=== PATIENT | female | born 1975 | race Caucasian/White ===

== ENCOUNTER 2016-11-29 10:46 | Emergency (ER) | payer OTHER ==
[~2016-11-29 10:46] MED LIST: ALAVERT10 MG PO; ALBUTEROL17 GM INH; ALPRAZOLAM PO; AMOXICILLIN875 MG PO; AMOXIL500 M1; AUGMENTIN PO; BENTYL20 MG PO; BUSPAR; BUSPAR15 M1 PO; BUSPAR15 M2 PO; BUSPAR5 M1; CETIRIZINE HCL10 MG PO; CHANTIX1 MG BU; CIPRO PO; CORTISPORI10 ML OTIC AD; CYMBALTA PO; DEPAKOTE ER PO; DICYCLOMINE HCL20 MG PO; FLEXERIL10 MG PO; FLONASE 0.05% N16 G1; IBUPROFEN PO; IBUPROFEN800 MG PO; LISINOPRIL20 MG PO; LORATADINE PO; LORTAB 5/500 TA1 TA1 PO; MEDROL4 MG/DOSE- PO; MOTRIN600 MG PO; NAPROXEN PO; NASONEX17 GM; NO MEDICATIONS; PHENERGAN PO; PHENERGAN PR; PHENERGAN12.5 MG PO; PHENERGAN25 MG PO; POLYETHYLENE G527 GM PO; RANITIDINE HCL150 M1 PO; SINGULAIR PO; TYLENOL #3 PO; ULTRAM PO; ZANTAC150 M1 PO; ZITHROMAX PO; ZOFRAN ODT4 MG/UDTAB PO
[2016-11-29 11:23] LABS: BASOPHIL# 0.1 X10e3 (0-0.3); BASOPHIL% 0.5 % (0-2.5); EOSINOPHIL# 0.1 X10e3 (0-0.7); EOSINOPHIL% 0.8 % (0.0-7.0); HEMATOCRIT 44.4 % (35.0-45.0); LYMPHOCYTE# 2.1 X10e3 (1.0-3.5); LYMPHOCYTE% 18.7 % (17.0-45.0); MEAN CELL VOLUME 93.3 FL (83-96); MEAN CORPUSCULAR HEMOGLOBIN 31.5 PG (28-34); MEAN CORPUSCULAR HGB CONC 33.8 g/dL (30-36); MEAN PLATELET VOLUME 9.6 FL (6.5-11.5); MONOCYTE# 0.6 X10e3 (0-1.0); MONOCYTE% 5.2 % (3.0-12.0); NEUTROPHIL# 8.2 X10e3 (1.5-7.1); NEUTROPHIL% 74.8 % (40-75); PLATELET COUNT 162 X10e3 (140-420); RED BLOOD COUNT 4.75 X10e (3.90-5.30); RED CELL DISTRIBUTION WIDTH 13.7 % (11.0-15.5)
[2016-11-29 11:31] LABS: DIFF IND NO
[2016-11-29 11:40] LABS: ALBUMIN SERUM 4.4 g/dL (3.5-5.0); ALKALINE PHOSPHATASE 41 U/L (32-92); ALT (SGPT) 17 U/L (10-40); AST (SGOT) 20 U/L (10-42); BILIRUBIN, DIRECT 0.1 mg/dL (0.0-0.2); BILIRUBIN,INDIRECT 0.7 mg/dL (0.0-0.9); BILIRUBIN,TOTAL 0.8 mg/dL (0.2-2.0); BLOOD UREA NITROGEN 8 mg/dL (9-23); BUN/CREATININE RATIO 11.42; CALCIUM SERUM 9.1 mg/dL (8.4-10.2); CARBON DIOXIDE 28 mmol/L (22-31); CHLORIDE 106 mmol/L (100-111); CREATININE SERUM 0.7 mg/dL (0.6-1.4); GLOM FILT RATE Estimated ABOVE60 mL/min (>60); GLUCOSE FASTING 113 mg/dL (70-110); LIPASE 29 U/L (22-51); PROTEIN TOTAL SERUM 7.6 g/dL (6.0-8.3); SODIUM 141 mmol/L (135-145); URINE SOURCE CLEAN CATCH
[2016-11-29 11:42] LABS: URINE APPEARANCE CLEAR; URINE BILIRUBIN NEG (NEG); URINE BLOOD 1+ (NEG); URINE COLOR YELLOW; URINE GLUCOSE NEG (NORM); URINE KETONE NEG (NEG); URINE LEUKOCYTE ESTERASE NEG (NEG); URINE NITRATE NEG (NEG); URINE PROTEIN NEG (NEG); URINE SPECIFIC GRAVITY >=1.030 (1.003-1.035); URINE UROBILINOGEN 0.2 MG/DL (NORM)
[2016-11-29 11:53] LABS: MICRO INDICATED? YES
[2016-11-29 11:54] LABS: CULTURE INDICATED? NO; URINE BACTERIA NEG (NEG); URINE RBC 0-2 /[HPF] (0-2); URINE WBC 0-2 /[HPF] (0-5)
== END 2016-11-29 13:14 | disposition home or self-care (01) ==
LOC: SED 10:46
PROVIDERS: Nurse Practitioner
DX: R11.2 Nausea with vomiting, unspecified (principal); R19.7 Diarrhea, unspecified; F41.9 Anxiety disorder, unspecified; Z90.49 Acquired absence of other specified parts of digestive tract; Z88.5 Allergy status to narcotic agent
CPT/HCPCS: 36415; 80048; 80076; 81003; 83690; 84703; 85025; 96361; 96372; 96374; 96375; 99284; C9113; J0500; J1885; J2405; J2550

== ENCOUNTER 2016-12-23 16:40 | Emergency (ER) | payer OTHER ==
--- NOTE | ~2016-12-23 | CT52 ---
[facility] A Service of [facility] RADIOLOGY TEXT RESULTS PATIENT: GABRIELE MCDONALD LOCATION: SED : 71 UNIT #: [id number] AGE: [address]: Lambert High MD SEX: F ORDER DR: [id number] [address] [address] [id number] E MR#: [id number] Acc #: [id number] NAME: GABRIELE MCDONALD : 1975 SEX: F STUDY DATE/TIME: 12/23/2016 16:53 UNIT: SED ROOM: STUDY DESCRIPTION: CT Cervical Spine Wo Cont Attending Physician: Lambert High M.D. Ordering Physician: Lambert High M.D. Primary Care Physician: Umesh Merlos M.D. MEDICAL IMAGING REPORT This report is preliminary unless electronic signature is present. EXAM CT cervical spine without contrast HISTORY Neck pain after fall 2 days ago. FINDINGS This CT exam was performed with one or more of the following radiation dose reduction techniques: Automatic exposure control, adjustment of mA and/or kV according to patient size, and iterative reconstruction. CT cervical spine without contrast demonstrates moderate degenerative disc space narrowing at C5-6 with moderate sized broad-based marginal osteophyte and associated facet hypertrophy causing moderate bilateral bony outlet foraminal narrowing, right greater than left. There is also moderate left bony outlet foraminal narrowing at C7-T1 and mild right bony outlet foraminal narrowing at C7-T1 secondary to marginal osteophyte and facet hypertrophy, left greater than right. No fracture. No cervical subluxation. No precervical soft tissue swelling. IMPRESSION 1. No acute findings. 2. No fracture. 3. Moderate disc space narrowing at C5-6. 4. Moderate bony outlet foraminal narrowing at C5-6 bilaterally and at C7-T1 on the left. Dictated by... Larry Amin M.D. [facility] A Service [facility] RADIOLOGY TEXT RESULTS PATIENT: GABRIELE MCDONALD [facility] [id number] : [birth year] UNIT #: [id number] AGE: [address]: Lambert High MD SEX: F ORDER DR: THIS IS AN ELECTRONICALLY VERIFIED REPORT Larry Amin M.D. at 12/23/2016 10:55 PM DFL/christian TD: 12/23/2016 22:05 JOB #: [id number] MEDICAL IMAGING REPORT Page 1 of 1
--- NOTE | ~2016-12-23 | CT71 ---
[facility] A Service of [facility] RADIOLOGY TEXT RESULTS PATIENT: GABRIELE MCDONALD LOCATION: SED : [birth year] UNIT #: [id number] AGE: [address]: Lambert High MD SEX: F ORDER DR: [id number] [address] [address] [id number] E MR#: [id number] Acc #: [id number] NAME: GABRIELE MCDONALD : 1975 SEX: F STUDY DATE/TIME: 12/23/2016 16:47 UNIT: SED ROOM: STUDY DESCRIPTION: CT Head Wo Contrast Attending Physician: Lambert High M.D. Ordering Physician: Lambert High M.D. Primary Care Physician: Umesh Merlos M.D. MEDICAL IMAGING REPORT This report is preliminary unless electronic signature is present. EXAM CT brain without contrast HISTORY Fell and hit head. Headache. Confusion today. FINDINGS This CT exam was performed with one or more of the following radiation dose reduction techniques: Automatic exposure control, adjustment of mA and/or kV according to patient size, and iterative reconstruction. CT brain without contrast demonstrates no intracranial hemorrhage, mass or edema. No midline shift or ventricular dilatation or extraaxial fluid collection. Developmental asymmetry of the left anterior frontal skull previously noted on 03/13/2016. No focal atrophy or midline shift or extraaxial fluid collection. Small amount of fluid and mucosal thickening in the maxillary sinuses and ethmoid air cells bilaterally. IMPRESSION 1. No acute intracranial findings. 2. Mild bilateral paranasal sinusitis. Dictated by... Larry Amin M.D. THIS IS AN ELECTRONICALLY VERIFIED REPORT Larry Amin M.D. at 12/23/2016 10:55 PM DFL/psc TD: 12/23/2016 21:50 JOB #: [id number] [facility] A Service [facility] RADIOLOGY TEXT RESULTS PATIENT: GABRIELE MCDONALD LOCATION: [facility] #: [id number] : [birth year] UNIT #: [id number] AGE: [address]: Lambert High MD SEX: F ORDER DR: MEDICAL IMAGING REPORT Page 1 of 1
== END 2016-12-23 17:40 | disposition home or self-care (01) ==
LOC: SED 16:40
DX: S06.0X1A Concussion with loss of consciousness of 30 minutes or less, initial encounter (principal); S00.83XA Contusion of other part of head, initial encounter; I10 Essential (primary) hypertension; F17.210 Nicotine dependence, cigarettes, uncomplicated; Z98.51 Tubal ligation status; W19.XXXA Unspecified fall, initial encounter; Y92.009 Unspecified place in unspecified non-institutional (private) residence as the place of occurrence of the external cause
CPT/HCPCS: 70450; 72125; 99284

== ENCOUNTER 2017-02-04 07:59 | Emergency (ER) | payer OTHER ==
--- NOTE | ~2017-02-04 | CT99 ---
[facility] A Service of [facility] RADIOLOGY TEXT RESULTS PATIENT: GABRIELE MCDONALD LOCATION: SED : 71 UNIT #: [id number] AGE: [address]: Charley Barber MD SEX: F ORDER DR: [id number] [address] [address] [id number] E MR#: [id number] Acc #: [id number] NAME: GABRIELE MCDONALD : 1975 SEX: F STUDY DATE/TIME: 02/04/2017 9:11 UNIT: SED ROOM: STUDY DESCRIPTION: CT Maxillofacial Area W Cont Attending Physician: Charley Barber M.D. Ordering Physician: Charley Barber M.D. Primary Care Physician: Umesh Merlos M.D. MEDICAL IMAGING REPORT This report is preliminary unless electronic signature is present. EXAM Maxillofacial CT with contrast. DATE OF STUDY 02/04/2017. TECHNIQUE Axial contrast enhanced maxillofacial CT with multiplanar reformats. This CT exam was performed with one or more of the following radiation dose reduction techniques: Automatic exposure control, adjustment of mA and/or kV according to patient size, and iterative reconstruction. CLINICAL HISTORY 2-day history of dizziness, sinus pain, suspected sinusitis, reported history of left facial/cheek swelling and tooth infection. FINDINGS There is left maxillary sinus mucosal thickening but no definite air-fluid level. There is no bone erosion or destruction. There is bilateral modest ethmoid and slight right frontal sinus mucosal thickening as well along with mild left sphenoid mucosal thickening. The visualized mastoids are normal. Again, there is no air-fluid level or bone erosion or destruction. The orbital soft tissues and visualized intracranial soft tissues are unremarkable. There is no extracranial soft tissue, inflammatory change or evidence to suggest facial abscess or other acute compromise. IMPERSSION There is some left maxillary sinus mucosal thickening without a definite air-fluid level and some scattered left greater than right ethmoid, right frontal and left sphenoid mucosal thickening, again without air-fluid [facility] A Service of [facility] RADIOLOGY TEXT RESULTS PATIENT: GABRIELE MCDONALD [place] [facility] : [birth year] UNIT #: [id number] AGE: [address]: Charley Barber MD SEX: F ORDER DR: level or other evidence of an aggressive process such as bone erosion or obstruction. The facial soft tissues show no substantial inflammatory change or evidence of fluid collection or other acute abnormality. Dictated by... Jovi Dumont M.D. THIS IS AN ELECTRONICALLY VERIFIED REPORT Jovi Dumont M.D. at 02/06/2017 1:22 PM TEV/bd TD: 02/04/2017 12:28 JOB #: [id number] MEDICAL IMAGING REPORT Page 1 of 1
--- NOTE | ~2017-02-04 | CR63 ---
[facility] A Service of [facility] RADIOLOGY TEXT RESULTS PATIENT: GABRIELE MCDONALD LOCATION: SED : [birth year] UNIT #: [id number] AGE: [address]: Charley Barber MD SEX: F ORDER DR: [id number] [place] [id number] E MR#: [id number] Acc #: [id number] NAME: GABRIELE MCDONALD : 1975 SEX: F STUDY DATE/TIME: 02/04/2017 9:03 UNIT: SED ROOM: STUDY DESCRIPTION: CR Chest 2 View Attending Physician: Charley Barber M.D. Ordering Physician: Charley Barber M.D. Primary Care Physician: Umesh Merlos M.D. MEDICAL IMAGING REPORT This report is preliminary unless electronic signature is present. EXAM Two view chest HISTORY A 41 year old woman with cough, vomiting, dizziness x2 days. History also indicates short of air. COMPARISON STUDIES Chest 07/19/2016. FINDINGS Two-view chest demonstrates normal and stable heart size. Hilar structures and mediastinal contours are preserved. Bilateral lungs are expanded and clear. IMPRESSION Negative chest Dictated by... Morgan Mcallister M.D. THIS IS AN ELECTRONICALLY VERIFIED REPORT Morgan Mcallister M.D. at 02/04/2017 1:41 PM THADDEUS/meg TD: 02/04/2017 12:35 JOB #: [id number] MEDICAL IMAGING REPORT [facility] A Service of [facility] RADIOLOGY TEXT RESULTS PATIENT: GABRIELE MCDONALD LOCATION: SED : [birth year] UNIT #: [id number] AGE: [address]: Charley Barber MD SEX: F ORDER DR: Page 1 of 1
[2017-02-04] MEDS ORDERED: [UNRECOGNIZED DRUG - REMARK] (08:06)
[2017-02-04 08:48] LABS: BASOPHIL# 0.1 X10e3 (0-0.3); BASOPHIL% 0.7 % (0-2.5); EOSINOPHIL# 0.3 X10e3 (0-0.7); EOSINOPHIL% 3.8 % (0.0-7.0); HEMATOCRIT 40.7 % (35.0-45.0); HEMOGLOBIN 14.1 gm/dL (12.0-16.0); LYMPHOCYTE% 34.1 % (17.0-45.0); MEAN CELL VOLUME 92.3 FL (83-96); MEAN CORPUSCULAR HEMOGLOBIN 32.1 PG (28-34); MEAN CORPUSCULAR HGB CONC 34.8 g/dL (30-36); MEAN PLATELET VOLUME 9.7 FL (6.5-11.5); MONOCYTE# 0.6 X10e3 (0-1.0); MONOCYTE% 6.3 % (3.0-12.0); NEUTROPHIL# 4.9 X10e3 (1.5-7.1); NEUTROPHIL% 55.1 % (40-75); PLATELET COUNT 173 X10e3 (140-420); RED CELL DISTRIBUTION WIDTH 13.3 % (11.0-15.5); WHITE BLOOD COUNT 8.9 X10e3 (4.0-10.5)
[2017-02-04 08:53] LABS: DIFF IND NO
[2017-02-04 09:07] LABS: BILIRUBIN, DIRECT 0.1 mg/dL (0.0-0.2); BILIRUBIN,INDIRECT 0.3 mg/dL (0.0-0.9); BILIRUBIN,TOTAL 0.4 mg/dL (0.2-2.0); BUN/CREATININE RATIO 7.14; CALCIUM SERUM 8.8 mg/dL (8.4-10.2); CREATININE SERUM 0.7 mg/dL (0.6-1.4); GLOM FILT RATE Estimated 106.1 mL/min (>60); POTASSIUM 3.3 mmol/L (3.5-5.1); PROTEIN TOTAL SERUM 7.2 g/dL (6.0-8.3)
== END 2017-02-04 11:06 | disposition home or self-care (01) ==
LOC: SED 07:59
PROVIDERS: Emergency Medicine
DX: J40 Bronchitis, not specified as acute or chronic (principal); K05.10 Chronic gingivitis, plaque induced; K21.9 Gastro-esophageal reflux disease without esophagitis; I10 Essential (primary) hypertension; F41.9 Anxiety disorder, unspecified; F32.9 Major depressive disorder, single episode, unspecified; Z90.49 Acquired absence of other specified parts of digestive tract; F17.210 Nicotine dependence, cigarettes, uncomplicated; Z88.5 Allergy status to narcotic agent
CPT/HCPCS: 36415; 70487; 71020; 80048; 80076; 85025; 94640; 96374; 99284; J2930; Q9967

== ENCOUNTER 2017-05-28 06:58 | Emergency (ER) | payer OTHER ==
[~2017-05-28 06:58] MED LIST changes: +[UNRECOGNIZED DRUG - REMARK]
[2017-05-28] MEDS ORDERED: MEDROXYPROGEST2.5 MG (07:06)
== END 2017-05-28 07:47 | disposition home or self-care (01) ==
LOC: SED 06:58
DX: K64.4 Residual hemorrhoidal skin tags (principal); K21.9 Gastro-esophageal reflux disease without esophagitis; I10 Essential (primary) hypertension; F31.9 Bipolar disorder, unspecified; F17.200 Nicotine dependence, unspecified, uncomplicated
CPT/HCPCS: 99283

== ENCOUNTER 2017-06-04 22:15 | Emergency (ER) | payer OTHER ==
[~2017-06-04] VITALS: Ht 165.1 cm; Wt 74.8 kg
[~2017-06-04 22:15] MED LIST changes: +MEDROXYPROGEST2.5 MG
== END 2017-06-04 23:52 | disposition home or self-care (01) ==
LOC: SED 22:15
DX: K64.9 Unspecified hemorrhoids (principal); I10 Essential (primary) hypertension; Z88.5 Allergy status to narcotic agent; Z79.899 Other long term (current) drug therapy
CPT/HCPCS: 99283